=== PATIENT | female | born 1975 | race Caucasian/White ===

== ENCOUNTER → 2017-06-05 | Outpatient (CLI) | payer BC ==
[~2017-06-05] MED LIST: BUPR300T53 PO; NORE-107 PO; THYR60TA2 PO
== END | disposition home or self-care (01) ==
LOC: RAH 14:21
PROVIDERS: ATTEND Obstetrics & Gynecology
DX: R92.8 Other abnormal and inconclusive findings on diagnostic imaging of breast (principal); Z98.82 Breast implant status
CPT/HCPCS: 77066

== ENCOUNTER → 2020-02-11 | Outpatient (CLI) | payer OTHER | END | disposition home or self-care (01) | LOC: RAH 09:14 | PROVIDERS: ATTEND Specialist | DX: Z12.31 Encounter for screening mammogram for malignant neoplasm of breast (principal) | CPT/HCPCS: 77067 ==

== ENCOUNTER → 2020-03-30 | Outpatient (CLI) | payer OTHER, SELFPAY ==
[~2020-03-30] MED LIST changes: +GADODIAMIDE 10 MMOL/20 ML VIAL IV ONE
== END | disposition home or self-care (01) ==
LOC: RAH 10:00
PROVIDERS: ATTEND Neurological Surgery
DX: M54.12 Radiculopathy, cervical region (principal); E04.1 Nontoxic single thyroid nodule; Z98.890 Other specified postprocedural states
CPT/HCPCS: 72156; A9579

== ENCOUNTER 2021-12-27 06:55 | Day surgery (SDC) | payer OTHER, SELFPAY ==
[2021-12-24 13:14] VITALS: BP 145/80
[2021-12-24 13:26] LABS: BASOPHILS % (AUTO) 0.6 % (0.0-5.0); HEMATOCRIT 40.5 % (36-48); LYMPHOCYTES % (AUTO) 26.4 % (21.0-51.0); MEAN CORPUSCULAR HEMOGLOBIN 29.2 pg (27.0-33.0); MEAN CORPUSCULAR HGB CONC 33.6 g/dL (32.0-36.0); MEAN CORPUSCULAR VOLUME 86.9 fL (79-99); MONOCYTES % (AUTO) 7.6 % (3.0-13.0); NEUTROPHILS % (AUTO) 62.8 % (40.0-77.0); PLATELET COUNT (AUTO) 268 K/uL (130-400); RED BLOOD CELL COUNT(AUTO) 4.66 MIL/uL (4.00-5.50); RED CELL DISTRIBUTION WIDTH 13.3 % (11.0-15.5)
[2021-12-24 13:43] LABS: CREATININE 0.8 mg/dL (0.5-1.5); POTASSIUM 3.1 mmol/L (3.5-5.1)
[2021-12-27] VITALS (14 sets, daily range): BP systolic 106–139; BP diastolic 59–78
[~2021-12-27] VITALS: Ht 165.1 cm; Wt 77.2 kg
[~2021-12-27 06:55] MED LIST changes: +FISH1CAP27 PO; -GADODIAMIDE 10 MMOL/20 ML VIAL IV ONE; +HYDR25TA PO; +LEVO125T95 PO; +LISI10TA24 PO; +MULT-447 PO; -NORE-107 PO; +PANT40TA54 PO; -THYR60TA2 PO
[2021-12-27] MEDS ORDERED: MIDAZOLAM HCL 1 MG/ML 2ML VIAL ONE (07:18)
[2021-12-27] MEDS ORDERED: ONDANSETRON 4MG INJ ONE (07:18)
[2021-12-27] MEDS ORDERED: ROCURONIUM 10MG/1ML SYR 10 MG/ML ML ONE (07:18)
[2021-12-27] MEDS ORDERED: PROPOFOL 10 MG/ML 20ML VIAL IV ONE (07:18)
[2021-12-27] MEDS ORDERED: LACTATED RINGERS 1000ML 1,000 ML IV ONE (07:45)
[2021-12-27] MEDS: CEFAZOLIN SODIUM 1 GM VIAL IVP ONE ×2 (07:57→08:20)
[2021-12-27] MEDS ORDERED: HYDROMORPHONE 1 MG INJ ONE (08:08)
[2021-12-27] MEDS ORDERED: LIDOCAINE HCL 1% 20 ML VIAL ONE (08:12)
[2021-12-27] MEDS ORDERED: DEXAMETHASONE SOD PHOSPHATE 10MG/ML 1ML VIAL ONE (08:24)
[2021-12-27] MEDS ORDERED: PHENYLEPHRINE HCL 10 MG/ML 1ML VIAL IV ONE (08:32)
[2021-12-27] MEDS ORDERED: GLYCOPYRROLATE 1 MG/5 ML SYRINGE ONE (08:33)
[2021-12-27] MEDS ORDERED: KETOROLAC 30MG VIAL (30MG/ML) ONE (08:44)
[2021-12-27] MEDS ORDERED: IBUP-2070 PO (09:13)
[2021-12-27] MEDS ORDERED: ACET-2079 PO (09:13)
[2021-12-27] MEDS ORDERED: CEPH500B PO (09:13)
[2021-12-27] MEDS ORDERED: MEPERIDINE-PF 25 MG/ML SYG ONE (09:21)
== END 2021-12-27 11:00 | disposition home or self-care (01) ==
LOC: DAH 06:55
PROVIDERS: ATTEND Orthopaedic Surgery
DX: S83.242A Other tear of medial meniscus, current injury, left knee, initial encounter (principal); S83.412A Sprain of medial collateral ligament of left knee, initial encounter; I10 Essential (primary) hypertension; K21.9 Gastro-esophageal reflux disease without esophagitis; F41.9 Anxiety disorder, unspecified; E03.9 Hypothyroidism, unspecified; X58.XXXA Exposure to other specified factors, initial encounter; Y93.89 Activity, other specified; Y92.89 Other specified places as the place of occurrence of the external cause
CPT/HCPCS: 80048; 85025; 87426; 81025; 36415; 29881; J7120 ×2; A4649; J0690; J1170; J3490; J1100; J2250; J2704; J2405; J1885; J2175; A6223; A5120; A4215; A4222; A4221; A4663; A4216; A6450; A4606; A4223 ×3; J2370

== ENCOUNTER → 2023-01-03 | Outpatient (CLI) | payer OTHER ==
[~2023-01-03] MED LIST changes: +ACET-2079 PO; +CEPH500B PO; +IBUP-2070 PO
== END | disposition home or self-care (01) ==
LOC: RAH 08:15
PROVIDERS: ATTEND Student in an Organized Health Care Education/Training Program
DX: I73.00 Raynaud's syndrome without gangrene (principal)
CPT/HCPCS: 93931